=== PATIENT | male | born 1955 | race Caucasian/White ===

== ENCOUNTER 2025-04-24 07:27 | Inpatient (IN) | payer OTHER, MEDICAID, MEDICARE ==
[~2025-04-24] VITALS: Ht 172.7 cm; Wt 86.2 kg
[2025-04-24] MEDS: LEVETIRACETAM 500MG PREMIX 100 ML IV ONE ×2 (08:20)
[2025-04-24] MEDS: ACETAMINOPHEN 325MG TABLET PO ONE (08:20)
[2025-04-24] MEDS: LACTATED RINGERS 1,000 ML IV SCH (08:20)
[2025-04-24 09:31] LABS: CREATININE 1.0 mg/dL (0.6-1.3); UREA NITROGEN BLOOD 15 mg/dL (9-23)
[2025-04-24 09:33] LABS: ASPARTATE AMINOTRANSFERASE 12 IU/L (<34); BILIRUBIN DIRECT 0.1 mg/dL (<=3.0)
[2025-04-24 09:34] LABS: BILIRUBIN TOTAL 0.3 mg/dL (0.1-1.0); PROTEIN TOTAL 5.9 g/dL (6.0-8.3)
[2025-04-24] MEDS: TETANUS, DIPHTHERIA, PERTUSSIS VAC/PF 0.5ML (>10YR OLD) IM ONE (09:47)
[2025-04-24 10:03] LABS: BASOPHILS % 0.8 % (0.0-2.0); EOSINOPHILS % 2.4 % (0.0-5.0); HEMATOCRIT. 33.7 % (42.0-52.0); HEMOGLOBIN. 10.8 g/dL (14.0-18.0); LYMPHOCYTES % 20.6 % (20.0-50.0); MEAN PLATELET VOLUME 7.9 fl (7.4-10.4); MONOCYTES % 6.5 % (2.0-8.0); NEUTROPHILS % 69.7 % (40.0-76.0); PLATELET 427 x1000/uL (130-400); RED BLOOD CELL COUNT 4.20 mill/uL (4.7-6.1); RED CELL DISTRIBUTION WIDTH 18.5 % (11.6-14.6)
[2025-04-24 10:13] LABS: INR 2.2
[2025-04-24 12:10] VITALS: BP_SYST 123; BP_SYST 128; BP_DIAS 69; BP_DIAS 85; PULSE 73; PULSE 75; RESP 15; RESP 16; TEMP 36.2; TEMP 36.5; O2SAT 97
[2025-04-24] MEDS ORDERED: IOHEXOL-300 100 ML BOTTLE ONE (14:29)
[2025-04-24] MEDS ORDERED: NALOXONE HCL 0.4MG/ML VIAL IV PRN (15:15)
[2025-04-24] MEDS ORDERED: ONDANSETRON HCL 4MG/2ML INJ IV PRN (15:15)
[2025-04-24] MEDS ORDERED: IPRATROPIUM/ALBUTEROL 0.5-3(2.5)MG/3ML NEB HHN PRN (15:15)
[2025-04-24 16:34] VITALS: BP 124/64; PULSE 63; RESP 20; TEMP 36.6; O2SAT 98
[2025-04-24 20:00] VITALS: BP 112/59; PULSE 71; RESP 18; TEMP 37.1; O2SAT 97
[2025-04-24] MEDS: HYDROCODONE/ACETAMINOPHEN 5/325MG TABLET PO PRN (21:23)
[2025-04-24] MEDS ORDERED: *PATIENT'S OWN MEDICATION STORAGE XX SCH (22:00)
[2025-04-25] VITALS (7 sets, daily range): BP systolic 100–142; BP diastolic 51–71; PULSE 65–74; RESP 16–20; TEMP 36.4–36.9; O2SAT 96–98
[2025-04-25] MEDS ORDERED: APIX5TAB PO (05:53)
[2025-04-25] MEDS ORDERED: PANT40TA51 PO (05:53)
[2025-04-25] MEDS ORDERED: AMLO5TAB88 PO (05:53)
[2025-04-25] MEDS ORDERED: DONE5TAB33 PO (05:53)
[2025-04-25] MEDS ORDERED: CARV6.2548 PO (05:53)
[2025-04-25] MEDS ORDERED: ALBU10.7 (05:53)
[2025-04-25] MEDS ORDERED: GABA-529 PO (05:53)
[2025-04-25] MEDS ORDERED: TAMSULOSIN (05:53)
[2025-04-25] MEDS ORDERED: FAMO40TA7 PO (05:53)
[2025-04-25] MEDS ORDERED: LOSA50TA41 PO (05:53)
[2025-04-25] MEDS ORDERED: ATOR-2 PO (05:53)
[2025-04-25] MEDS ORDERED: MONT-39 PO (05:53)
[2025-04-25] MEDS ORDERED: METO-411 PO (05:53)
[2025-04-25] MEDS ORDERED: WARF-53 PO (05:53)
[2025-04-25 07:03] LABS: BASOPHILS % 1.3 % (0.0-2.0); EOSINOPHILS % 2.3 % (0.0-5.0); HEMATOCRIT. 31.2 % (42.0-52.0); HEMOGLOBIN. 10.0 g/dL (14.0-18.0); LYMPHOCYTES % 32.1 % (20.0-50.0); MEAN PLATELET VOLUME 7.7 fl (7.4-10.4); MONOCYTES % 9.9 % (2.0-8.0); NEUTROPHILS % 54.4 % (40.0-76.0); PLATELET 382 x1000/uL (130-400); RED BLOOD CELL COUNT 3.88 mill/uL (4.7-6.1); RED CELL DISTRIBUTION WIDTH 18.0 % (11.6-14.6)
[2025-04-25 07:16] LABS: TRIGLYCERIDE 94.0 mg/dL (0-150)
[2025-04-25 07:17] LABS: LDL CHOLESTEROL 19.0 mg/dL (5-100)
[2025-04-25] MEDS: APIXABAN 5 MG TABLET PO SCH (20:38)
[2025-04-26] VITALS: BP 107/56; PULSE 78; RESP 20; TEMP 36.4; O2SAT 93
[2025-04-26 04:00] VITALS: BP_SYST 113; BP_SYST 137; BP_DIAS 56; BP_DIAS 75; PULSE 88; PULSE 94; RESP 18; TEMP 36.2; TEMP 36.3; O2SAT 95; O2SAT 99
[2025-04-26 08:00] VITALS: BP 119/50; PULSE 66; RESP 16; TEMP 36.3; O2SAT 97
[2025-04-26 12:00] VITALS: BP 111/65; PULSE 81; RESP 20; TEMP 37.1; O2SAT 98
[2025-04-26 12:27] LABS: INR 1.3
[2025-04-26 16:00] VITALS: BP 116/63; PULSE 91; RESP 18; TEMP 37.6; O2SAT 100
[2025-04-26 20:00] VITALS: BP 109/54; PULSE 81; RESP 16; TEMP 36.8; O2SAT 94
[2025-04-26] MEDS: ATORVASTATIN CALCIUM 40MG TABLET PO SCH (21:25)
[2025-04-26] MEDS ORDERED: IOHEXOL-350 100 ML BOTTLE ONE (22:55)
[2025-04-27] VITALS: BP 124/78; PULSE 87; RESP 16; TEMP 36.8; O2SAT 93
[2025-04-27 08:00] VITALS: BP 121/70; PULSE 85; RESP 16; TEMP 36.6; O2SAT 96
[2025-04-27] MEDS: ASPIRIN 81MG TABLET PO SCH (09:08)
[2025-04-27 12:00] VITALS: BP 117/69; PULSE 79; RESP 16; TEMP 36.4; O2SAT 95
[2025-04-27 16:00] VITALS: BP 125/70; PULSE 75; RESP 16; TEMP 36.2; O2SAT 95
[2025-04-27] MEDS ORDERED: KEPP500 MT (16:41)
[2025-04-27 17:02] VITALS: BP 125/80; PULSE 89; TEMP 97.6; O2SAT 98
[2025-04-27] MEDS: LEVETIRACETAM 500MG TABLET PO SCH (17:24)
== END 2025-04-27 18:05 | disposition home health service (06) | DRG 101 ==
LOC: ER 07:27 → 7WST 09:45 → EDBEDREQTM 09:47 → EDBEDREQ 09:47 → ENRESERV 10:36
PROVIDERS: ADMIT Internal Medicine; ATTEND Internal Medicine
PROC: 4A00X4Z Measurement of Central Nervous Electrical Activity, External Approach (ICD-10-PCS; principal; 2025-04-27)
DX: R56.9 Unspecified convulsions (principal); I67.82 Cerebral ischemia; R58 Hemorrhage, not elsewhere classified; E11.40 Type 2 diabetes mellitus with diabetic neuropathy, unspecified; I10 Essential (primary) hypertension; K40.90 Unilateral inguinal hernia, without obstruction or gangrene, not specified as recurrent; D64.9 Anemia, unspecified; Z86.718 Personal history of other venous thrombosis and embolism; Z79.899 Other long term (current) drug therapy
CPT/HCPCS: 36415; 70496; 70498; 70551; 71045; 72192; 73502; 74177; 80048; 80061; 80076; 82550; 85025; 90715; 93005; 93970; 95816; 97162; 97166; 97530; 97535; 99285; A4606; J1953; Q9967